=== PATIENT | male | born 1980 | race Caucasian/White ===

== ENCOUNTER 2021-03-25 05:54 | Emergency (ER) | payer OTHER ==
[~2021-03-25 05:54] MED LIST: BACTRIM DS TAB1 EACH PO; ZYVOX600 MG PO
== END 2021-03-25 15:43 | disposition home or self-care (01) ==
LOC: ER1 05:54
DX: R45.851 Suicidal ideations (principal); F17.200 Nicotine dependence, unspecified, uncomplicated; Z88.0 Allergy status to penicillin; F19.10 Other psychoactive substance abuse, uncomplicated; Z20.822 Contact with and (suspected) exposure to COVID-19
CPT/HCPCS: 99285; U0002

== ENCOUNTER 2021-05-15 16:37 | Emergency (ER) | payer OTHER | END 2021-05-15 19:00 | disposition home or self-care (01) | LOC: ER1 16:37 | DX: R52 Pain, unspecified (principal); J02.9 Acute pharyngitis, unspecified; Z20.822 Contact with and (suspected) exposure to COVID-19 | CPT/HCPCS: 87081; 87880; 99283; U0002 ==